=== PATIENT | female | born 1940 | race Caucasian/White ===

== ENCOUNTER 2016-08-08 08:21 | Emergency (ER) | payer MEDICARE, BC ==
[2016-07-10 10:15] VITALS: BMI 28.9
[~2016-08-08 08:21] MED LIST: ATIVAN1 MG PO; AXID150 MG PO; BAYER CHEWABLE81 MG PO; CALTRATE 600 M600 M1 PO; CLARITIN 10 MG10 MG PO; COLACE100 MG PO; HYTRIN1 MG PO; K-TAB10 MEQ PO; LIPITOR80 MG PO; NEURONTIN 300300 MG PO; NORCO 7.5/325 T1 TA1 PO; PLAVIX75 MG PO; PRESERVISION AR1 CAP PO; PRINIVIL10 MG PO; TOPROL XL25 MG PO; ZYLOPRIM100 MG PO
== END 2016-08-08 09:13 | disposition home or self-care (01) ==
LOC: D.ER 08:21
DX: I10 Essential (primary) hypertension (principal)

== ENCOUNTER → 2017-01-03 08:19 | Outpatient (CLI) | payer MEDICARE, BC ==
[~2017-01-03] VITALS: Ht 160 cm; Wt 72.7 kg
--- NOTE | ~2017-01-03 | HEMODYNAMI ---
PATIENT:DELTA MOON MEDICAL RECORD: [id number] : 38 LOCATION:[facility] ADMISSION DATE: 01/03/17 Generatedon:01/03/201711:02 Patient name: DELTA MOON Patient #: [id number] : 1940 Date of study: 01/03/2017 Page: Of Hemodynamic Procedure Report Patient Data Patient Demographics Procedure consent was obtained First Name: DELTA Gender: Female Last Name: SARAI : 1940 Middle Initial: P Age: 76 year(s) Patient #: [id number] Race: SSN: [id number] Additional ID: [id number] Contact details [address]: [address] [place] [address] State: [place] City: [place] Zip code: [address] Past Medical History History of disease Date Diagnosis Comments CAD Allergies Allergen Reaction Date Comments Reported Other allergy 08/03/2015 COMPAZINE Other allergy 07/10/2016 Compazine Other allergy 01/03/2017 Compazine Admission Admission Data Admission Date: 01/03/2017 Admission Time: 8:19 Procedure Procedure Types Cath Procedure Diagnostic Procedure LHC LHC w/Coronaries w/Grafts PCI Procedure SVG-BMS/LAURA Initial Miscellaneous Procedures Moderate Sedation up to 30 minutes Procedure Description Procedure Date Procedure Date: 01/03/2017 Procedure Start Time: 10:45 Procedure End Time: 11:02 Procedure Staff Name Function Yaron Oliva MD Performing Physician Juan Ko RT Scrub Bebeto Friedman RN Nurse Vanessa Plunkett RT Monitor Procedure Data Cath Procedure Fluoroscopy Diagnostic fluoroscopy Total fluoroscopy Time: 2.8 time: 2.8 min min Diagnostic fluoroscopy Total fluoroscopy dose: 306 dose: 306 mGy mGy Contrast Material Contrast Material Type Amount (ml) Isovue 300 85 Entry Location Entry Primary Successful Side Size Upsize Upsize Entry Closure Succes sful Closure Location (Fr) 1 (Fr) 2 (Fr) Remarks Device Remarks Femoral Right 5 Fr 6 Fr Exoseal artery Short Estimated blood loss: 10 ml Diagnostic catheters Device Type Used For End Catheter Placement Cordis 5Fr Pigtail LV Angiography Catheter (MP) Cordis 5Fr JL 4.0 Left Coronary Catheter (MP) Angiography Cordis 5Fr 3DRC Catheter Internal mammary (MP) arteriography Cordis 5Fr 3DRC Catheter Right Coronary (MP) Angiography Diagnostic Infinity 5Fr SVG Angiography AR 2 MOD catheter Diagnostic Infinity 5Fr SVG Angiography AR 2 MOD catheter Procedure Complications No complications Procedure Medications Medication Administration Route Dosage Oxygen NC 2 l/min Heparin Flush Bag added to field 2 bags (1000units/500ml NS) 0.9% NaCl I.V. 100 ml/hr Fentanyl I.V. 50 mcg Versed I.V. 1 mg Fentanyl I.V. 50 mcg Versed I.V. 1 mg Heparin Bolus I.V. 4000 units Hemodynamics Rest Heart Rate: 62 (bpm) Snapshots Pre Cath Intra NCS Post Cath Vital Signs Time Heart Resp SPO2 etCO2 [id number] NIBP (mmHg) Rhythm Pain Sedation Rate (ipm) (%) (mmHg) (mmHg) Status Level (bpm) 10:17:32 61 16 97 0 0 133/66(102) NSR 0 (11) 10(A) , No pain 10:21:44 61 18 100 0 0 123/68(95) NSR 0 (11) 10(A) , No pain 10:25:58 62 18 100 0 0 123/62(94) NSR 0 (11) 10(A) , No pain 10:30:14 61 17 100 0 0 115/55(85) NSR 0 (11) 9(A) , No pain 10:34:28 62 18 94 0 0 105/52(82) NSR 0 (11) 9(A) , No pain 10:38:38 62 18 97 0 0 97/53(71) NSR 0 (11) 9(A) , No pain 10:42:42 61 16 98 0 0 109/61(80) NSR 0 (11) 9(A) , No pain 10:46:52 61 19 99 0 0 106/59(84) NSR 0 (11) 9(A) , No pain 10:50:59 62 18 95 0 0 105/62(77) NSR 0 (11) 9(A) , No pain 10:55:07 63 17 94 0 0 100/57(73) NSR 0 (11) 9(A) , No pain 10:59:13 66 18 94 0 0 92/59(69) NSR 0 (11) 9(A) , No pain Medications Time Medication Route Dose Verified Delivered Reason Notes Effectiveness by by 10:16:16 Oxygen NC 2 Bebeto Bebeto Per physician l/min Elder Friedman RN RN 10:16:28 Heparin Flush added 2 Bebeto Bebeto used for Bag to bags Elder Friedman RN procedure (1000units/500ml field RN NS) 10:16:39 0.9% NaCl I.V. 100 Bebeto Bebeto Per physician ml/hr Elder Friedman RN RN 10:29:33 Fentanyl I.V. 50 Bebeto Bebeto for sedation mcg Elder Friedman RN RN 10:29:40 Versed I.V. 1 mg Bebeto Bebeto for sedation Elder Friedman RN RN 10:36:02 Fentanyl I.V. 50 Bebeto Bebeto for sedation mcg Elder Friedman RN RN 10:36:06 Versed I.V. 1 mg Bebeto Bebeto for sedation Elder Friedman RN RN 10:53:05 Heparin Bolus I.V. 4000 Bebeto Bebeto for units Elder Friedman RN anticoagulation roadmaster Log Time Note 9:55:14 Bebeto Friedman RN sent for patient. Start room use. 10:05:15 Time tracking: Regular hours 10:05:20 Plan of Care:Hemodynamics will remain stable., Cardiac rhythm will remain stable., Comfort level will be maintained., Respiratory function will remain adequate., Patient/ family verbilizes understanding of procedure., Procedure tolerated without complication., Recovers from procedure without complications.. 10:08:45 Patient received from Pre/Post Procedure Room to CCL 1 Alert and oriented. Tansferred to table in Supine position. 10:08:46 Warm blankets applied, and yrn hugger turned on for patient comfort. 10:08:46 Correct patient and procedure confirmed by team. 10:08:47 Signed procedure consent form obtained from patient. 10:08:48 ECG and BP/O2 sat monitors applied to patient. 10:08:49 Full Disclosure recording started 10:16:16 Oxygen 2 l/min NC was administered by Bebeto Friedman RN; Per physician; 10:16:25 Vital chart was started 10:16:28 Heparin Flush Bag (1000units/500ml NS) 2 bags added to field was administered by Bebeto Friedman RN; used for procedure; 10:16:29 Rhythm: sinus rhythm 10:16:39 0.9% NaCl 100 ml/hr I.V. was administered by Bebeto Friedman RN; Per physician; 10:17:07 H&P Date Dictated: 12/27/2016 Within 30 days and on chart., H&P Addendum completed by physician on day of procedure. (MUST COMPLETE FOR ALL OUTPATIENTS). 10:17:08 Pre-procedure instructions explained to patient. 10:17:09 Pre-op teaching completed and patient verbalized understanding. 10:17:10 Family in waiting room. 10:17:11 Patient NPO since Midnight. 10:17:30 Patient allergic to Other allergyCompazine 10:17:34 Is the patient allergic to Iodine/contrast media? No. 10:17:36 Is patient on blood thinner?Yes 10:17:38 ACC The patient was administered the following blood thiners within the last 24 hours: ACCPlavix 10:17:41 Patient diabetic? No. 10:17:44 Previous problem with sedation/anesthesia? No ? 10:17:48 Snore? Yes 10:17:49 Sleep apnea? Yes 10:17:50 Deviated septum? No 10:17:51 Opens mouth fully? Yes 10:17:52 Sticks out tongue? Yes 10:17:54 Airway obstruction? No ? 10:17:56 Dentures? No ? 10:17:58 Pre procedure: right dorsailis pedis pulse 2+ Normal; easily identifiable; not easily obliterated 10:18:00 Patient pain scale 0/10 ?. 10:18:03 IV patent on arrival in left hand with 0.9% NaCl at O. 10:18:07 Lab results completed and on chart. 10:18:13 Right groin area was prepped with chlora-prep and draped in sterile fashion 10:18:15 Alarms reviewed by R. N. 10:18:16 Sharps counted by scrub and verified by R.N. 10:18:22 Use device set Femoral Dx 10:18:22 Acist Syringe opened to sterile field. 10:18:23 Bag Decanter opened to sterile field. 10:18:23 Medline Cath Pack opened to sterile field. 10:18:24 Terumo 5Fr Avoca Sheath opened to sterile field. 10:18:24 [facility] Anthony 260cm J .035 wire opened to sterile field. 10:18:25 Acist Hand Control opened to sterile field. 10:18:26 Acist Manifold opened to sterile field. 10:18:26 Diagnostic Infinity 5Fr Multipack catheter opened to sterile field. 10:18:27 Tegaderm 4 x 4 opened to sterile field. 10:19:03 Baseline sample Acquired. 10:28:57 Final Timeout: patient, procedure, and site verified with staff and physician. All members of the team are in agreement. 10:29:00 Right groin site verified by team. 10:29:04 Physical assessment completed. ASA score P 2 - A patient with mild systemic disease as per Yaron Oliva MD. 10:29:08 Sedation plan: IV Moderate Sedation Versed, Fentanyl 10:29:15 Zero performed for pressure channel P1 10:29:33 Fentanyl 50 mcg I.V. was administered by Bebeto Friedman RN; for sedation; 10:29:40 Versed 1 mg I.V. was administered by Bebeto Friedman RN; for sedation; 10:36:02 Fentanyl 50 mcg I.V. was administered by Bebeto Friedman RN; for sedation; 10:36:06 Versed 1 mg I.V. was administered by Bebeto Friedman RN; for sedation; 10:45:10 Procedure started. 10:45:13 Local anesthetic to right femoral artery with Lidocaine 2% by Yaron Oliva MD.INITIAL ACCESS ONLY 10:45:21 A 5 Fr sheath was inserted into the Right Femoral artery 10:45:50 A Cordis 5Fr Pigtail Catheter (MP) was advanced over the wire and used for LV Angiography. 10:46:10 LV gram done using JONES 10:46:16 EF : 50 % 10:46:20 Injector settings: Ml/sec: 10, Volume: 20, 10:46:21 Catheter removed. 10:46:27 A Cordis 5Fr JL 4.0 Catheter (MP) was advanced over the wire and used for Left Coronary Angiography. 10:47:20 Catheter removed. 10:47:45 A Cordis 5Fr 3DRC Catheter (MP) was advanced over the wire and used for Internal mammary arteriography.to LAD atretic 10:48:55 A Cordis 5Fr 3DRC Catheter (MP) was advanced over the wire and used for Right Coronary Angiography. 10:48:57 Catheter removed. 10:49:20 A Diagnostic Infinity 5Fr AR 2 MOD catheter was advanced over the wire and used for SVG Angiography.to CIRC 10:50:25 A Diagnostic Infinity 5Fr AR 2 MOD catheter was advanced over the wire and used for SVG Angiography.to RCA 10:51:32 Key Ringtronic Launcher 6Fr AR 1.0 SH guide catheter opened to sterile field. 10:51:32 Lucas Whisper J 300cm 0.014 guide wire opened to sterile field. 10:51:33 Soompi BasixCompak Inflation Kit opened to sterile field. 10:51:33 Terumo 6Fr Avoca Sheath opened to sterile field. 10:53:01 Sheath upsized to a 6 Fr Short. 10:53:05 Heparin Bolus 4000 units I.V. was administered by Bebeto Friedman RN; for anticoagulation; 10:53:10 6 Fr AR 1.0 SH guide catheter was inserted over the wire 10:53:49 Whisper wire advanced. 10:54:11 Inflation Number: 1 A Biofreedom 3.0 x 11 stent (No Cost Implant) was prepped and advanced across the Aorta Left -> 1st Ob Yulia. The stent was deployed at 11 MADAI for 0:10 (min:sec). 10:54:26 Stent catheter was removed intact over wire. 10:54:27 Wire removed. 10:54:27 Guide catheter removed. 10:54:36 Cordis 6Fr Exoseal opened to sterile field. 10:54:45 Sheath removed intact; hemostasis achieved with Exoseal to the Right Femoral artery. 10:54:47 Procedure ended.(Physican Out) 10:55:29 Fluoroscopy time 02.80 minutes. 10:55:33 Flurop Dose total: 306 10:55:33 Fluoroscopy dose: 306 mGy 10:55:42 Contrast amount:Isovue 300 85ml. 10:55:43 Sharps counted by scrub and verified by R.N. 10:55:45 Insertion/operative site no bleeding no hematoma. 10:55:47 Post-op/insertion site Right Femoral artery dressed using a 4 x 4 and Tegaderm. 10:55:52 Post right femoral artery:stable, clean and dry 10:56:07 Post Procedure Pulses reassessed and unchanged 10:59:48 Post-procedure physical assessment completed. ASA score P 2 - A patient with mild systemic disease as per Yaron Oliva MD. 10:59:50 Post procedure rhythm: unchanged. 10:59:52 Estimated blood loss: 10 ml 10:59:54 Post procedure instruction explained to patient.Patient verbalizes understanding. 10:59:55 Patient needs reinforcement of post procedure teaching. 11:00:19 Procedure type changed to Cath procedure, Diagnostic procedure, LHC, LHC w/Coronaries w/Grafts, PCI procedure, SVG-BMS/LAURA Initial, Miscellaneous Procedures, Moderate Sedation up to 30 minutes 11:02:13 Procedure and supply charges have been captured, reviewed, submitted and are correct. 11:02:18 Procedure Complication : No complications 11:02:21 Vital chart was stopped 11:02:21 See physician's report for complete and final results. 11:02:24 Report given to Pre/Post Procedure Room. 11:02:27 Patient transfered to Pre/Post Procedure Room with Stretcher. 11:02:30 Procedure ended. 11:02:30 Full Disclosure recording stopped 11:02:37 End room use (Document Last) Intervention Summary Intervention Notes Time ActionType Lesion and Equipment Action# Pressure Duration Attributes Used 10:54:11 Place stent Aorta Left Biofreedom 1 11 00:10 -> 1st Ob 3.0 x 11 Yulia stent (No Cost Implant) Device Usage Item Name Manufacture Quantity Catalog Hospital Part Current Minimal Lot# / Number Charge Number Stock Stock Serial# Code Acist Acist 1 23711 351484 563924 753792 20 Syringe Medical Systems Inc Bag Microtek 1 2002S 107539 98819 517251 5 Dec[employer]deego [employer] Medline Cardinal 1 [id number] 514258 08376 034446 5 Cath Pack Health Terumo 5Fr Terumo 1 [id number] 802892 711903 201434 [address] [facility] 1 360790 058138 480677 857729 30 260cm J .035 wire Acist Hand Acist 1 66423 543528 348990 384277 5 Control Medical Systems Inc Acist Acist 1 15441 045206 324081 004778 5 castaclip Systems Inc Diagnostic Cardinal 1 [id number] 676756 06284 138170 30 Infinity Health 5Fr Multipack catheter Tegaderm 4 3M 1 1626W 850077 342885 709379 5 x 4 Cordis 5Fr Cardinal 1 827697 5 Pigtail Health Catheter (MP) Cordis 5Fr Cardinal 1 835779 5 JL 4.0 Health Catheter (MP) Cordis 5Fr Cardinal 1 008874 5 3DRC Health Catheter (MP) Diagnostic Cardinal 1 [id number] 298237 863722 616511 20 Infinity Health 5Fr AR 2 MOD catheter Medtronic Medtronic 1 [id number] 353854 10048 889424 1 Launcher 6Fr AR 1.0 SH guide catheter Lucas Lucas 1 [id number] 724617 622173 042004 5 [facility] V[facility] 300cm 0.014 guide wire Merit Merit 1 [id number] 071068 144142 855866 15 Effcon MXR Medical Inflation Kit Terumo 6Fr Terumo 1 [id number] 239129 305536 956901 40 Avoca Sheath Biofreedom Biosensors 1 [id number] 978830 921525 5 [id number] 3.0 x 11 Europe SA stent (No Cost Implant) Cordis 6Fr Cardinal 1 EX600 714680 063553 732134 10 [place] Signature Audit [place] Stage Time Signature Unsigned Intra-Procedure 01/03/2017 Vanessa 11:02:47 AM Counts RT(R) Signatures Monitor : Vanessa Signature : Counts RT Date : Time : [facility] [address] [place] [address]
[~2017-01-03 08:19] MED LIST changes: +EX-LAX MAXIMUM25 MG PO; +PENICILLIN V P500 MG PO
[2017-01-03 09:08] VITALS: BP 163/64; Ht 160 cm; Wt 72.7 kg
[2017-01-03 09:46] LABS: BASOPHILS 0.9 % (0-2); EOSINOPHILS 9.9 % (0-7); HEMATOCRIT 37.8 % (36.0-48.0); HEMOGLOBIN 12.1 g/dL (12-16); LYMPHOCYTES 28.1 % (15-50); MCH 31.8 pg (26.0-34.0); MCV 99.5 fL (80.0-100.0); MEAN PLATELET VOLUME 10.4 fL (7.4-10.4); MONOCYTES 10.2 % (2-11); NEUTROPHILS 50.9 % (40-80); PLATELET COUNT 152 10x3/uL (130-400); RDW 14.9 % (11.5-14.5); WBC 5.3 10x3/uL (4.8-10.8)
[2017-01-03 09:56] LABS: ANION GAP 12.9 mmol/L (8-16); CALCIUM 8.8 mg/dL (8.5-10.1); CARBON DIOXIDE 24.2 mmol/L (21.0-32.0); CREATININE - SERUM 1.3 mg/dL (0.6-1.3); POTASSIUM - SERUM 4.1 mmol/L (3.5-5.1)
[2017-01-03 10:13] LABS: CKMB 13.3 U/L (0.0-3.6); CREATINE KINASE 80 UL (21-215)
[2017-01-03 10:17] LABS: TROPONIN-I < 0.017 ng/mL (0.000-0.060)
--- NOTE | 2017-01-03 11:30 | NUR ---
1130 VSS WITH CHEST PAIN DENIED. 6 FR EXOSEAL R/GROIN CDI NO BLEEDING NO HEMATOMA NOTED. INSTRUCTED PATIENT TO KEEP HEAD FLAT ON PILLOW WITH RLE STRAIGHT 1200 RESTING QUIETLY WITH NO DISTRESS R/GROIN CDI NO BLEEDING NO HEMATOMA NOTED. WILL CONTINUE TO MONITOR
--- NOTE | 2017-01-03 12:30 | NUR ---
R/GROIN CDI NO BLEEDING NO HEMATOMA NOTED. PATIENT DENIED PAIN OR NEEDS AT THIS TIME WILL MONITOR
--- NOTE | 2017-01-03 13:00 | NUR ---
QUIETLY RESTING IN BED WITH EYES CLOSED. VSS. RIGHT GROIN 6F EXOSEAL CDI, NO BLEEDING OR HEMATOMA NOTED. NO C/O CHEST PAIN AT THIS TIME. WILL CONTINUE TO MONITOR.
--- NOTE | 2017-01-03 14:06 | NUR ---
POST PROCEDURE EKG COMPLETE AND TO CHART HR 59 BP 116/46
--- NOTE | 2017-01-03 14:53 | NUR ---
PIV REMOVED FROM L/ARM WITH DRESSING APPLIED. PATIENT UP TO BATHROOM WITH ASSIST R/GROIN CDI NO BLEEDING NOTED CHEST PAIN DENIED
--- NOTE | 2017-01-03 15:07 | NUR ---
VERBAL AND WRITTEN DISCHARGE GONE OVER WITH PATIENT. R/GROIN REMAINS STABLE NO BLEEDING NOTED. CHEST PAIN IS DENIED. TRANSPORTED VIA TO PARKING FOR DAUGHTER TO DRIVE HOME
--- NOTE | 2017-01-04 13:29 | OP ---
PATIENT NAME: DELTA MOON MEDICAL RECORD: [id number] :38 LOCATION:[facility] ADMISSION DATE: SURGEON: FABIENNE SANCHEZ MD DATE OF OPERATION: 01/03/2017 PROCEDURES: 1. PTCA stent vein graft to the circumflex. 2. Left heart catheterization. 3. Selective coronary angiography. 4. Vein graft angiography. 5. AVALOS angiography. INDICATION: Angina and coronary artery disease. PROCEDURE: After informed consent was obtained and after detailed explanation of risks, benefits as well as alternative therapies, the patient elected to proceed with angiogram and angioplasty. The right femoral area was prepped and draped in normal sterile fashion. The right femoral artery was cannulated via modified Seldinger technique with placement of 6-Belarusian sheath. All catheters exchanged through this sheath. FINDINGS: The left ventriculogram was performed in standard 30-degree JONES view reveals preserved cardiac wall motion, ejection fraction 50%. SELECTIVE CORONARY ANGIOGRAPHY: 1. Left main is with no significant angiographic disease. 2. The left circumflex is patent; however, the first obtuse marginal was totally occluded. 3. Vein graft to the first obtuse marginal was patent, previously placed stents are widely patent. However, proximal to the previously placed stents, there is an 80% stenosis that is new. 4. Left anterior descending is totally occluded in mid vessel. 5. AVALOS to the LAD is closed. 6. Right coronary has a total occlusion in the proximal vessel. 7. Vein graft to the right coronary is widely patent with no significant disease. The distal right coronary is small and diffusely diseased. PTCA STENT OF THE VEIN GRAFT TO THE CIRCUMFLEX: The stent used was a 3.0 x 11 mm BioFreedom stent. This lesion was 8 mm in length in a 3.0 vessel. YAZMIN 3 flow before and after the intervention, 0% residual stenosis after the intervention. OVERALL IMPRESSION: Successful percutaneous transluminal coronary angioplasty stent of the vein graft to the circumflex going from 80% initial stenosis to 0% residual stenosis. TRANSINT:[id number] Voice Confirmation ID: [id number] DOCUMENT ID: [id number] OPERATIVE REPORT [id number] DELTA MOON FABIENNE BAUMANN MD at 1329 CC: [id number] DICTATION DATE: 01/03/17 1114 PROCESS IMPROVEMENT SPECIALIST: 01/03/17 1504 DEP CLI 01/03/17 [facility] [address] [place] [address]
== END | disposition home or self-care (01) ==
LOC: D.CATH 08:19
PROVIDERS: Internal Medicine Interventional Cardiology
DX: I25.719 Atherosclerosis of autologous vein coronary artery bypass graft(s) with unspecified angina pectoris (principal); I25.119 Atherosclerotic heart disease of native coronary artery with unspecified angina pectoris; Z00.6 Encounter for examination for normal comparison and control in clinical research program

== ENCOUNTER 2017-09-17 07:27 | Outpatient (CLI) | payer MEDICARE, BC ==
[~2017-09-17] VITALS: Ht 160 cm; Wt 75.0 kg
--- NOTE | ~2017-09-17 | HEMODYNAMI ---
PATIENT:DELTA MOON MEDICAL RECORD: [id number] : 38 LOCATION:[facility] ADMISSION DATE: 09/17/17 Generatedon:09/17/201710:09 Patient name: DELTA MOON Patient #: [id number] : 1940 Date of study: 09/17/2017 Page: Of Hemodynamic Procedure Report Patient Data Patient Demographics Procedure consent was obtained First Name: DELTA Gender: Female Last Name: SARAI : 1940 Middle Initial: P Age: 77 year(s) Patient #: [id number] Race: SSN: [id number] Additional ID: [id number] Contact details [address]: [address] [place] [address] State: [place] City: [place] Zip code: [address] Past Medical History History of disease Date Diagnosis Comments CAD Allergies Allergen Reaction Date Comments Reported Other allergy 08/03/2015 COMPAZINE Other allergy 07/10/2016 Compazine Other allergy 01/03/2017 Compazine Other allergy 09/17/2017 Prochlorperazine Admission Admission Data Admission Date: 09/17/2017 Admission Time: 7:27 Admit Source: Other Lab Results Lab Result Date: 09/17/2017 Lab Result Time: 7:55 Biochemistry Name Units Result Min Max BUN mg/dl 26 --(----)-* 7 18 Creatinine mg/dl 1.5 --(----)-* 0.6 1.3 CBC Name Units Result Min Max Hematocrit % 44 --(*---)-- 42 54 Hemoglobin g/dl 14.4 --(*---)-- 13.5 17.5 Procedure Procedure Types Cath Procedure Diagnostic Procedure LHC LHC w/Coronaries w/Grafts Procedure Description Procedure Date Procedure Date: 09/17/2017 Procedure Start Time: 9:54 Procedure End Time: 10:08 Procedure Staff Name Function Yaron Oliva MD Performing Physician Bebeto Friedman RN Nurse Truong Sotelo RT Monitor Juan Ko RT Scrub Procedure Data Cath Procedure Fluoroscopy Diagnostic fluoroscopy Total fluoroscopy Time: 1.5 time: 1.5 min min Diagnostic fluoroscopy Total fluoroscopy dose: dose: 172.41 mGy 172.41 mGy Contrast Material Contrast Material Type Amount (ml) Isovue 300 72 Entry Location Entry Primary Successful Side Size Upsize Upsize Entry Closure Succes sful Closure Location (Fr) 1 (Fr) 2 (Fr) Remarks Device Remarks Femoral Right 5 Fr Exoseal artery Estimated blood loss: 10 ml Diagnostic catheters Device Type Used For End Catheter Placement MULTIPACK Pigtail 5 Fr Procedure catheter MULTIPACK JL 4.0 5Fr Procedure catheter DIAGNOSTIC AR 2 MOD 5 Fr Procedure catheter ([id number]) Procedure Medications Medication Administration Route Dosage Oxygen NC 2 l/min Heparin Flush Bag added to field 2 bags (1000units/500ml NS) 0.9% NaCl I.V. 100 ml/hr Fentanyl I.V. 50 mcg Versed I.V. 1 mg Fentanyl I.V. 50 mcg Versed I.V. 1 mg Hemodynamics Rest HGB: 14.4 (g/dl) Heart Rate: 59 (bpm) Pressure Samples Time Site Value (mmHg) Purpose Heart Use Rate(bpm) 9:56 LV 127/17,23 Snapshot 59 Snapshots Pre Cath Intra NCS Post Cath Vital Signs Time Heart Resp SPO2 etCO2 NIBP (mmHg) Rhythm Pain Sedation Rate (ipm) (%) (mmHg) Status Level (bpm) 9:42:25 58 16 98 0 155/79(128) NSR 0 (11) 10(A) , No pain 9:46:55 59 16 100 15.2 143/83(115) NSR 0 (11) 10(A) , No pain 9:51:23 57 16 100 25.9 147/77(125) NSR 0 (11) 10(A) , No pain 9:55:52 58 17 100 153/78(122) NSR 0 (11) 10(A) , No pain 10:00:20 59 15 96 10.6 120/65(97) NSR 0 (11) 9(A) , No pain 10:04:36 62 16 95 0 103/66(98) NSR 0 (11) 9(A) , No pain Medications Time Medication Route Dose Verified Delivered Reason Notes Effect iveness by by 9:42:57 Oxygen NC 2 Yaron Bebeto Per l/min Hazel Friedman RN physician 9:43:06 Heparin Flush added 2 Yaron Hannahy used for Bag to bags Hazel Friedman bullet swaging machine adjuster (1000units/500ml field NS) 9:43:14 0.9% NaCl I.V. 100 Yaron Hannahy Per ml/hr Hazel Friedman RN physician 9:55:12 Fentanyl I.V. 50 Yaron Hannahy for mcg Hazel Friedman RN sedation 9:55:20 Versed I.V. 1 mg Yaron Hannahy for Hazel Friedman RN sedation 9:58:01 Fentanyl I.V. 50 Yaron Hannahy for mcg Hazel Friedman RN sedation 9:58:06 Versed I.V. 1 mg Yaron Hannahy for Hazel Friedman RN sedation Procedure Log Time Note 9:20:08 Truong Sotelo RT(R) (CV) sent for patient. Start room use. 9:29:33 Informed consent obtained and on chart 9:29:37 Admit Source: Other 9:30:07 Diagnostic Cath status Elective 9:30:09 Time tracking: Regular hours 9:30:12 Plan of Care:Hemodynamics will remain stable., Cardiac rhythm will remain stable., Comfort level will be maintained., Respiratory function will remain adequate., Patient/ family verbilizes understanding of procedure., Procedure tolerated without complication., Recovers from procedure without complications.. 9:30:25 H&P Date Dictated: 09/03/2017 Within 30 days and on chart., H&P Addendum completed by physician on day of procedure. (MUST COMPLETE FOR ALL OUTPATIENTS). 9:31:31 Lab Result : Hemoglobin 14.4 g/dl 9::31 Lab Result : Hematocrit 44 % 9:31:31 Lab Result : BUN 26 mg/dl 9:31:31 Lab Result : Creatinine 1.5 mg/dl 9:34:27 Patient received from Pre/Post Procedure Room to CCL 3 Alert and oriented. Tansferred to table in Supine position. 9:34:28 Warm blankets applied, and yrn hugger turned on for patient comfort. 9:34:29 Correct patient and procedure confirmed by team. 9:34:30 ECG and BP/O2 sat monitors applied to patient. 9:34:31 Pre-procedure instructions explained to patient. 9:34:32 Pre-op teaching completed and patient verbalized understanding. 9:34:33 Family in waiting room. 9:34:34 Patient NPO since Midnight. 9:34:47 Patient allergic to Other allergyProchlorperazine 9:41:04 Vital chart was started 9:41:05 Baseline sample Acquired. 9:42:57 Oxygen 2 l/min NC was administered by Bebeto Friedman RN; Per physician; 9:43:06 Heparin Flush Bag (1000units/500ml NS) 2 bags added to field was administered by Bebeto Friedman RN; used for procedure; 9:43:14 0.9% NaCl 100 ml/hr I.V. was administered by Bebeto Friedman RN; Per physician; 9:43:45 Baseline sample Acquired. 9:43:57 Rhythm: sinus rhythm 9:45:49 Is the patient allergic to Iodine/contrast media? No. 9:46:13 Is patient on blood thinner?Yes 9:46:16 ACC The patient was administered the following blood thiners within the last 24 hours: ACCPlavix 9:46:21 Patient diabetic? No. 9:46:24 Patient not . Patient is over age 55. 9:46:25 ----Pre-sedation anethsthesia assessment.---- 9:46:27 Previous problem with sedation/anesthesia? No ? 9:46:29 Snore? Yes 9:46:30 Sleep apnea? Yes 9:46:32 Deviated septum? No 9:46:33 Opens mouth fully? Yes 9:46:33 Sticks out tongue? Yes 9:46:36 Airway obstruction? No ? 9:46:39 Dentures? No ? 9:49:01 Pre procedure: right dorsailis pedis pulse 2+ Normal; easily identifiable; not easily obliterated 9:49:14 Patient pain scale 0/10 0. 9:49:29 IV patent on arrival in left wrist with 0.9% NaCl at O. 9:49:33 Lab results completed and on chart. 9:49:37 Right groin area was prepped with chlora-prep and draped in sterile fashion 9:49:38 Alarms reviewed by R. N. 9:49:39 Sharps counted by scrub and verified by R.N. 9:49:43 Use device set Femoral Dx 9:49:45 ACIST Syringe (88613) opened to sterile field. 9:49:45 Bag Decanter (2002S) opened to sterile field. 9:49:46 Medline Cath Pack ([id number]) opened to sterile field. 9:49:47 SHEATH 5FR Estelline (CLG325) opened to sterile field. 9:49:48 DIAGNOSTIC WIRE .035 260cm J wire (668481) opened to sterile field. 9:49:49 ACIST Hand Control (70307) opened to sterile field. 9:49:50 ACIST Manifold (12441) opened to sterile field. 9:49:52 DIAGNOSTIC Multipack 5Fr catheter set ([id number]) opened to sterile field. 9:49:57 Tegaderm 4 x 4 (1626W) opened to sterile field. 9:49:59 PERCUTANEOUS ENTRY 19GA needle opened to sterile field. 9:52:10 Physician arrived 9:52:11 --------ALL STOP TIME OUT------ 9:52:11 Final Timeout: patient, procedure, and site verified with staff and physician. All members of the team are in agreement. 9:52:13 Right groin site verified by team. 9:52:16 Physical assessment completed. ASA score P 2 - A patient with mild systemic disease as per Yaron Oliva MD. 9:52:20 Sedation plan: IV Moderate Sedation Medication:Versed, Fentanyl 9:53:26 Procedure started. 9:53:26 Full Disclosure recording started 9:54:37 Local anesthetic to right femoral artery with Lidocaine 2% by Yaron Oliva MD.INITIAL ACCESS ONLY 9:55:12 Fentanyl 50 mcg I.V. was administered by Bebeto Friedman RN; for sedation; 9:55:20 Versed 1 mg I.V. was administered by Bebeto Friedman RN; for sedation; 9:56:04 A 5 Fr sheath was inserted into the Right Femoral artery 9:56:11 A MULTIPACK Pigtail 5 Fr catheter was advanced over the wire and used for Procedure. 9:56:35 LV hemodynamics recorded. 9:56:37 LV gram done using JONES 9:56:43 EF : 50 % 9:56:46 Catheter removed. 9:57:42 A MULTIPACK JL 4.0 5Fr catheter was advanced over the wire and used for Procedure. 9:57:48 LCA angiography performed. 9:57:58 Catheter removed. 9:58:01 Fentanyl 50 mcg I.V. was administered by Bebeto Friedman RN; for sedation; 9:58:05 A DIAGNOSTIC AR 2 MOD 5 Fr catheter ([id number]) was advanced over the wire and used for Procedure. 9:58:06 Versed 1 mg I.V. was administered by Bebeto Friedman RN; for sedation; 9:58:48 SVG to RCA angiography performed. 9:59:36 SVG to OM angiography performed. 10:00:57 EXOSEAL 5Fr (EX500) opened to sterile field. 10:01:03 Catheter removed. 10:01:33 Sheath removed intact; hemostasis achieved with Exoseal to the Right Femoral artery. 10:02:03 Procedure ended.(Physican Out) 10:02:15 Fluoroscopy time 01.50 minutes. 10:02:22 Flurop Dose total: 172.41 10:02:22 Fluoroscopy dose: 172.41 mGy 10:02:56 Contrast amount:Isovue 300 72ml. 10:02:57 Sharps counted by scrub and verified by R.N. 10:05:50 Insertion/operative site no bleeding no hematoma. 10:05:54 Post-op/insertion site Right Femoral artery dressed using a 4 x 4 and Tegaderm. 10:05:58 Post right femoral artery:stable 10:06:00 Post Procedure Pulses reassessed and unchanged 10:06:04 Post-procedure physical assessment completed. ASA score P 2 - A patient with mild systemic disease as per Yaron Oliva MD. 10:06:09 Post procedure rhythm: sinus rhythm 10:06:13 Estimated blood loss: 10 ml 10:06:16 Post procedure instruction explained to patient.Patient verbalizes understanding. 10:06:17 Patient needs reinforcement of post procedure teaching. 10:06:20 Procedure and supply charges have been captured, reviewed, submitted and are correct. 10:08:38 Vital chart was stopped 10:08:39 See physician's report for complete and final results. 10:08:41 Report given to Pre/Post Procedure Room. 10:08:45 Patient transfered to Pre/Post Procedure Room with Stretcher. 10:08:50 Procedure ended. 10:08:50 Full Disclosure recording stopped 10:09:21 End room use (Document Last) Device Usage Item Name Manufacture Quantity Catalog Hospital Part Current Minimal Lot# / Number Charge Number Stock Stock Serial# Code ACIST Acist 1 88913 [id number] 315359 710825 20 Syringe Medical (83353) Systems Inc Bag Decanter Microtek 1 2001S 668670 38554 264070 5 (2001S) Medical Inc. Medline Cath Cardinal 1 [id number] 330182 43583 249536 5 Pack Health ([id number]) SHEATH 5FR Terumo 1 QHD395 052382 357473 117053 40 Estelline (PEY790) DIAGNOSTIC [facility] 1 064824 838781 623227 283887 30 WIRE .035 260cm J wire (220643) ACIST Hand Acist 1 16397 866555 824398 753714 5 Control Medical (54628) Systems Inc ACIST Acist 1 05689 734738 556359 080875 5 Manifold Medical (11613) Systems Inc DIAGNOSTIC Cardinal 1 WE5125 620367 85917 689964 30 Multipack Health 5Fr catheter set ([id number]) Tegaderm 4 x 3M 1 1626W 603309 184314 805734 5 4 (1626W) PERCUTANEOUS Cook Medical 1 S45330 710044 642035 5 ENTRY 19GA needle MULTIPACK Cardinal 1 050587 5 Pigtail 5 Fr Health catheter MULTIPACK JL Cardinal 1 930772 5 4.0 5Fr Health catheter DIAGNOSTIC Cardinal 1 [id number] 232970 859963 283298 20 AR 2 MOD 5 Health Fr catheter ([id number]) EXOSEAL 5Fr Cardinal 1 EX500 263851 153050 320012 10 (EX500) Health Signature Audit Mosca Stage Time Signature Unsigned Intra-Procedure 09/17/2017 Truong Sotelo 10:09:42 AM RT(R) (CV) Signatures Monitor : Truong Sotelo RT Signature : Date : Time : [place] [address]
--- NOTE | ~2017-09-17 | OP ---
PATIENT NAME: DELTA MOON MEDICAL RECORD: [id number] :38 LOCATION:[facility] ADMISSION DATE: SURGEON: FABIENNE SANCHEZ MD DATE OF OPERATION: 09/17/2017 PROCEDURES: 1. Left heart catheterization. 2. Selective coronary angiography. 3. Vein graft angiography. 4. Left ventriculogram. INDICATION: Angina and coronary artery disease. PROCEDURE IN DETAIL: After informed consent was obtained and after detailed explanation of risks, benefits as well as alternative therapies, the patient elected to proceed with angiogram and heart catheterization. The right femoral area was prepped and draped in normal sterile fashion. The right femoral artery was cannulated via modified Seldinger technique with placement of 6-Kyrgyz sheath. All catheters exchanged through this sheath. FINDINGS: The left ventriculogram was performed in standard 30-degree JONES view, reveals preserved cardiac wall motion, ejection fraction 55% to 60%. SELECTIVE CORONARY ANGIOGRAPHY: 1. Left main showed no significant angiographic disease. 2. Left anterior descending is totally occluded. 3. From previous cardiac catheterization AVALOS is atretic and closed. 4. Left circumflex is totally occluded. 5. Vein graft to the circumflex is widely patent, previously placed stents are widely patent. The distal left circumflex is widely patent. 6. Right coronary artery is totally occluded. 7. Vein graft to the right coronary artery is widely patent. Distal right coronary artery is widely patent. OVERALL IMPRESSION: Wide patency of the circumflex and RCA graft, unchanged from previous angiography. Continue medical management of the coronary artery disease and cardiac risk factors. TRANSINT:[id number] Voice Confirmation ID: [id number] DOCUMENT ID: [id number] FABIENNE SANCHEZ MD CC: [id number] DICTATION DATE: 09/17/17 1005 COUNTER SUPERVISOR: 09/17/17 1122 [facility] [address] [place] [address]
[2017-09-17] MEDS ORDERED: TRIAZOLAM0.125 MG PO (07:48)
[2017-09-17] MEDS ORDERED: ISOSORBIDE MONO30 M1 PO (07:49)
[2017-09-17 08:05] LABS: BASOPHILS 0.5 % (0-2); EOSINOPHILS 6.8 % (0-7); HEMOGLOBIN 14.4 g/dL (12-16); IMMATURE GRANULOCYTES 0.1 % (0-5); LYMPHOCYTES 33.3 % (15-50); MCH 32.7 pg (26.0-34.0); MCHC 32.7 g/dL (31.0-37.0); MCV 99.8 fL (80.0-100.0); MEAN PLATELET VOLUME 10.3 fL (7.4-10.4); MONOCYTES 10.8 % (2-11); NEUTROPHILS 48.5 % (40-80); PLATELET COUNT 161 10x3/uL (130-400); RBC 4.41 10x6/uL (4.00-5.40); RDW 13.8 % (11.5-14.5); WBC 7.3 10x3/uL (4.8-10.8)
[2017-09-17 08:09] VITALS: BP 179/67; Ht 160 cm; Wt 75.0 kg
[2017-09-17 08:27] LABS: ANION GAP 15.4 mmol/L (8-16); CALCIUM 8.8 mg/dL (8.5-10.1); CARBON DIOXIDE 25.5 mmol/L (21.0-32.0); CREATININE - SERUM 1.5 mg/dL (0.6-1.3); POTASSIUM - SERUM 3.9 mmol/L (3.5-5.1)
== END 2017-09-17 12:25 | disposition home or self-care (01) ==
LOC: D.CATH 07:27
PROVIDERS: Internal Medicine Interventional Cardiology
DX: I25.10 Atherosclerotic heart disease of native coronary artery without angina pectoris (principal); I10 Essential (primary) hypertension; R07.9 Chest pain, unspecified; Z01.812 Encounter for preprocedural laboratory examination

== ENCOUNTER → 2018-02-22 08:37 | Outpatient (CLI) | payer MEDICARE, BC ==
[~2018-02-22] VITALS: Ht 160 cm; Wt 77.7 kg
--- NOTE | ~2018-02-22 | OP ---
PATIENT NAME: DELTA OMON MEDICAL RECORD: [id number] :38 LOCATION:D.CAT ADMISSION DATE: SURGEON: FABIENNE SANCHEZ MD DATE OF OPERATION: 02/22/2018 DATE OF SERVICE: 02/22/2018 PROCEDURES: 1. Left heart catheterization. 2. Selective coronary angiography. 3. Vein graft angiography. 4. Left ventriculogram. INDICATION: Angina and coronary artery disease. PROCEDURE IN DETAIL: After informed consent was obtained and after detailed explanation of risks, benefits as well as alternative therapies, the patient elected to proceed with angiogram and angioplasty. The right femoral area was prepped and draped in normal sterile fashion. Right femoral artery was cannulated via modified Seldinger technique with placement of 6-Kyrgyz sheath. All catheters exchanged through this sheath. FINDINGS: Left ventriculogram was performed in a standard 30-degree JONES view, reveals good cardiac wall motion throughout all segments. Overall ejection fraction estimated at 55% to 60%. SELECTIVE CORONARY ANGIOGRAPHY: 1. Left main is with no significant angiographic disease. 2. Left anterior descending is totally occluded in mid vessel. 3. AVALOS to the LAD is closed by previous cardiac catheterization. 4. Vein graft to the LAD diagonal is patent. The LAD diagonal is patent as well. 5. Left circumflex is widely patent and feeds the distal RCA. 6. The right coronary is totally occluded. 7. Vein graft to the distal right coronary is widely patent. Distal right coronary, PLV is widely patent. OVERALL IMPRESSION: Wide patency of both remaining vein grafts to the left anterior descending diagonal and right coronary artery. Elsewise, continue medical management of the coronary artery disease and cardiac risk factors. TRANSINT:[id number] Voice Confirmation ID: [id number] DOCUMENT ID: [id number] FABIENNE SANCHEZ MD at 1325 CC: [id number] DICTATION DATE: 02/22/18 1526 FLOOR LAYER APPRENTICE: 02/22/18 1537 [facility] CLI 02/22/[address] [address]
--- NOTE | ~2018-02-22 | HEMODYNAMI ---
PATIENT:DELTA MOON MEDICAL RECORD: [id number] : 38 LOCATION:[facility] ADMISSION DATE: 02/22/18 Generatedon:02/22/201815:28 Patient name: DELTA MOON Patient #: [id number] : 1940 Date of study: 02/22/2018 Page: Of Hemodynamic Procedure Report Patient Data Patient Demographics Procedure consent was obtained First Name: DELTA Gender: Female Last Name: SARAI : 1940 Middle Initial: P Age: 77 year(s) Patient #: [id number] Race: SSN: [id number] Additional ID: [id number] Contact details Address: [address] [place] [address] State: [place] City: [place] Zip code: [address] Past Medical History History of disease Date Diagnosis Comments CAD Allergies Allergen Reaction Date Comments Reported Other allergy 08/03/2015 COMPAZINE Other allergy 07/10/2016 Compazine Other allergy 01/03/2017 Compazine Other allergy 09/17/2017 Prochlorperazine Other allergy 02/22/2018 Compazine Admission Admission Data Admission Date: 02/22/2018 Admission Time: 8:37 Lab Results Lab Result Date: 02/22/2018 Lab Result Time: 10:10 Biochemistry Name Units Result Min Max BUN mg/dl 22 --(----)-* 7 18 Creatinine mg/dl 1.2 --(---*)-- 0.6 1.3 CBC Name Units Result Min Max Hematocrit % 38.9 *-(----)-- 42 54 Hemoglobin g/dl 12.8 -*(----)-- 13.5 17.5 Procedure Procedure Types Cath Procedure Diagnostic Procedure LHC LHC w/Coronaries w/Grafts Procedure Description Procedure Date Procedure Date: 02/22/2018 Procedure Start Time: 15:16 Procedure End Time: 15:27 Procedure Staff Name Function Yaron Oliva MD Performing Physician Juan Ko RT Monitor Jefferson Agustin RN Nurse Vanessa Plunkett RT Scrub Procedure Data Cath Procedure Fluoroscopy Diagnostic fluoroscopy Total fluoroscopy Time: 1.3 time: 1.3 min min Diagnostic fluoroscopy Total fluoroscopy dose: 513 dose: 513 mGy mGy Contrast Material Contrast Material Type Amount (ml) Isovue 300 53 Entry Location Entry Primary Successful Side Size Upsize Upsize Entry Closure Succes sful Closure Location (Fr) 1 (Fr) 2 (Fr) Remarks Device Remarks Femoral Right 5 Fr Exoseal artery Estimated blood loss: 5 ml Diagnostic catheters Device Type Used For End Catheter Placement MULTIPACK Pigtail 5 Fr Procedure catheter MULTIPACK JL 4.0 5Fr Procedure catheter DIAGNOSTIC AR 2 MOD 5 Fr Procedure catheter ([id number]) Procedure Complications No complications Procedure Medications Medication Administration Route Dosage 0.9% NaCl I.V. 100 ml/hr Oxygen etCO2 Nasal cannula 2 l/min Heparin Flush Bag added to field 2 bags (1000units/500ml NS) Lidocaine 2% added to field 20 Versed I.V. 2 mg Fentanyl I.V. 50 mcg Hemodynamics Rest HGB: 12.8 (g/dl) Heart Rate: 63 (bpm) Snapshots Pre Cath Intra NCS Post Cath Vital Signs Time Heart Resp SPO2 etCO2 NIBP (mmHg) Rhythm Pain Sedation Rate (ipm) (%) (mmHg) Status Level (bpm) 15:00:16 72 16 94 0 157/82(129) NSR 0 (11) 10(A) , No pain 15:05:01 64 15 100 37.3 145/73(122) NSR 0 (11) 10(A) , No pain 15:09:45 63 20 98 31.3 134/70(115) NSR 0 (11) 10(A) , No pain 15:14:30 62 16 98 32.1 135/67(107) NSR 0 (11) 10(A) , No pain 15:19:13 64 15 96 29.8 122/67(103) NSR 0 (11) 9(A) , No pain 15:23:53 64 18 97 29.8 132/72(104) NSR 0 (11) 9(A) , No pain Medications Time Medication Route Dose Verified Delivered Reason Notes Eff ectiveness by by 15:03:32 0.9% NaCl I.V. 100 Jefferson Jefferson Per ml/hr Nikole Agustin physician RN RN 15:03:41 Oxygen etCO2 2 Jefferson Jefferson Per Nasal l/min Nikole Agustin physician cannula RN RN 15:03:52 Heparin Flush added 2 Jefferson Jefferson used for Bag to bags Nikole Agustin procedure (1000units/500ml field RN RN NS) 15:04:03 Lidocaine 2% added 20ml Jefferson Jefferson for local to vial Lordeya Hidalgoigan anesthetic field RN RN 15:15:35 Versed I.V. 2 mg Jefferson Jefferson for Lorigan Lorigan sedation RN RN 15:15:45 Fentanyl I.V. 50 Jefferson Jefferson for mcg Lorigan Lorigan sedation RN offshore wind turbine technician Log Time Note 14:48:25 Vanessa Counts RT(R) sent for patient. Start room use. 14:48:25 Time tracking: Regular hours (M-F 7:00 - 5:00) 14:48:28 Plan of Care:Hemodynamics will remain stable., Cardiac rhythm will remain stable., Comfort level will be maintained., Respiratory function will remain adequate., Patient/ family verbilizes understanding of procedure., Procedure tolerated without complication., Recovers from procedure without complications.. 14:48:37 Procedure type changed to Cath procedure, Diagnostic procedure, LHC, LHC w/Coronaries w/Grafts 14:56:09 Patient received from Pre/Post Procedure Room to CCL 1 Alert and oriented. Tansferred to table in Supine position. 14:56:10 Warm blankets applied, and yrn hugger turned on for patient comfort. 14:56:11 Correct patient and procedure confirmed by team. 14:56:12 Signed procedure consent form obtained from patient. 14:56:13 Pre-procedure instructions explained to patient. 14:56:13 Pre-op teaching completed and patient verbalized understanding. 14:59:18 ECG and BP/O2 sat monitors applied to patient. 14:59:19 Vital chart was started 15:03:32 0.9% NaCl 100 ml/hr I.V. was administered by Jefferson Agustin RN; Per physician; 15:03:41 Oxygen 2 l/min etCO2 Nasal cannula was administered by Jefferson Agustin RN; Per physician; 15:03:52 Heparin Flush Bag (1000units/500ml NS) 2 bags added to field was administered by Jefferson Agustin RN; used for procedure; 15:04:03 Lidocaine 2% 20ml vial added to field was administered by Jefferson Agustin RN; for local anesthetic; 15:05:56 Baseline sample Acquired. 15:06:03 Rhythm: sinus rhythm 15:06:05 Full Disclosure recording started 15:06:45 H&P Date Dictated: 02/19/2018 Within 30 days and on chart., H&P Addendum completed by physician on day of procedure. (MUST COMPLETE FOR ALL OUTPATIENTS). 15:06:47 Family in waiting room. 15:06:48 Patient NPO since Midnight. 15:06:58 Patient allergic to Other allergyCompazine 15:07:15 Is the patient allergic to Iodine/contrast media? No. 15:07:17 Is patient on blood thinner?No 15:07:18 Patient diabetic? No. 15:07:21 Previous problem with sedation/anesthesia? No ? 15:07:22 Snore? Yes 15:07:23 Sleep apnea? Yes 15:07:24 Deviated septum? No 15:07:25 Opens mouth fully? Yes 15:07:26 Sticks out tongue? Yes 15:07:27 Airway obstruction? No ? 15:07:29 Dentures? No ? 15:07:33 Pre procedure: right posterior tibial pulse 2+ Normal; easily identifiable; not easily obliterated 15:07:36 Patient pain scale 0/10 ?. 15:07:48 IV patent on arrival in right antecubital with 0.9% NaCl at O. 15:09:34 Lab Result : Creatinine 1.2 mg/dl 15:09:34 Lab Result : BUN 22 mg/dl 15:09:34 Lab Result : Hemoglobin 12.8 g/dl 15:09:34 Lab Result : Hematocrit 38.9 % 15:09:37 Lab results completed and on chart. 15:09:43 Right groin area was prepped with chlora-prep and draped in sterile fashion 15:09:45 Alarms reviewed by R. N. 15:09:46 Sharps counted by scrub and verified by R.N. 15:09:48 Use device set Femoral Dx 15:09:49 ACIST Syringe (12589) opened to sterile field. 15:09:50 Bag Decanter (2002S) opened to sterile field. 15:09:50 Medline Cath Pack ([id number]) opened to sterile field. 15:09:52 ACIST Hand Control (09081) opened to sterile field. 15:09:53 ACIST Manifold (34858) opened to sterile field. 15:09:54 Tegaderm 4 x 4 (1626W) opened to sterile field. 15:09:55 SHEATH Prelude 5Fr 0.035 (BXX-2G-24-035) opened to sterile field. 15:09:58 DIAGNOSTIC Multipack 5Fr catheter set (ON3175) opened to sterile field. 15:09:59 DIAGNOSTIC WIRE .035 260cm J wire (117753) opened to sterile field. 15:12:06 Zero performed for pressure channel P1 15:14:53 Physician arrived 15::54 --------ALL STOP TIME OUT------ 15:14:54 Final Timeout: patient, procedure, and site verified with staff and physician. All members of the team are in agreement. 15:14:55 Right groin site verified by team. 15:14:58 Physical assessment completed. ASA score P 2 - A patient with mild systemic disease as per Yaron Oliva MD. 15:15:01 Sedation plan: IV Moderate Sedation Medication:Versed, Fentanyl 15:15:35 Versed 2 mg I.V. was administered by Jefferson Agustin RN; for sedation; 15:15:45 Fentanyl 50 mcg I.V. was administered by Jefferson Agustin RN; for sedation; 15:16:35 Procedure started. 15:16:40 Local anesthetic to right femoral artery with Lidocaine 2% by Yaron Oliva MD.INITIAL ACCESS ONLY 15:16:47 A 5 Fr sheath was inserted into the Right Femoral artery 15:16:56 A MULTIPACK Pigtail 5 Fr catheter was advanced over the wire and used for Procedure. 15:17:25 LV gram done using JONES 15:17:28 Injector settings: Ml/sec: 10, Volume: 20, 15:17:48 EF : 60 % 15:17:56 Catheter exchanged over wire. 15:18:10 A MULTIPACK JL 4.0 5Fr catheter was advanced over the wire and used for Procedure. 15:18:28 LCA angiography performed. 15:18:56 Catheter exchanged over wire. 15:19:31 A DIAGNOSTIC AR 2 MOD 5 Fr catheter ([id number]) was advanced over the wire and used for Procedure. 15:20:25 SVG to Diag angiography performed. 15:20:27 SVG to RCA angiography performed. 15:21:02 Catheter removed. 15:21:48 EXOSEAL 5Fr (EX500) opened to sterile field. 15:21:57 Sheath removed intact; hemostasis achieved with Exoseal to the Right Femoral artery. 15:21:59 Procedure ended.(Physican Out) 15:23:05 Fluoroscopy time 01.30 minutes. 15:23:17 Flurop Dose total: 513 15:23:17 Fluoroscopy dose: 513 mGy 15:24:16 Contrast amount:Isovue 300 53ml. 15:24:18 Sharps counted by scrub and verified by R.N. 15:24:20 Insertion/operative site no bleeding no hematoma. 15:24:23 Post-op/insertion site Right Femoral artery dressed using a 4 x 4 and Tegaderm. 15:24:26 Post right femoral artery:stable, soft, clean and dry 15:24:31 Post Procedure Pulses reassessed and unchanged 15:24:34 Post-procedure physical assessment completed. ASA score P 2 - A patient with mild systemic disease as per Yaron Oliva MD. 15:24:48 Post procedure rhythm: unchanged. 15:24:54 Estimated blood loss: 5 ml 15:24:55 Post procedure instruction explained to patient.Patient verbalizes understanding. 15:24:56 Patient needs reinforcement of post procedure teaching. 15:26:15 Procedure and supply charges have been captured, reviewed, submitted and are correct. 15:26:17 Procedure Complication : No complications 15:26:21 Vital chart was stopped 15:26:21 See physician's report for complete and final results. 15:26:22 Report given to Pre/Post Procedure Room. 15:26:54 Patient transfered to Pre/Post Procedure Room with Stretcher. 15:27:27 Procedure ended. 15:27:27 Full Disclosure recording stopped 15:27:30 End room use (Document Last) Device Usage Item Name Manufacture Quantity Catalog Number Hospital Part Current M inimal Lot# / Charge Number Stock Stock Serial# Code ACIST Syringe Acist 1 47167 117657 815213 854904 2 0 (34460) Nezasa Bag Decanter Microtek 1 053068 93871 308087 5 (2001S) Medical Inc. Medline Cath Cardinal 1 [id number] 473073 96997 392514 5 Pack Health ([id number]) ACIST Hand Acist 1 24649 556797 013777 499131 5 Control (91898) Medical Systems Inc ACIST Manifold Acist 1 51571 134804 476418 731947 5 (85152) Medical Systems Inc Tegaderm 4 x 4 3M 1 1626W 458886 186944 318291 5 (1626W) SHEATH Prelude Merit 1 [id number]-8Q-28-035 162708 847955 175245 5 5Fr 0.035 Medical (BFN-6Q-56-035) DIAGNOSTIC Cardinal 1 [id number] 571737 56758 761055 3 0 Multipack 5Fr Health catheter set ([id number]) DIAGNOSTIC WIRE [facility] 1 261117 676846 347824 587236 3 0 .035 260cm J wire (701209) MULTIPACK Cardinal 1 572821 5 Pigtail 5 Fr Health catheter MULTIPACK JL Cardinal 1 360630 5 4.0 5Fr Health catheter DIAGNOSTIC AR 2 Cardinal 1 [id number] 770204 588128 498548 2 0 MOD 5 Fr Health catheter ([id number]) EXOSEAL 5Fr Cardinal 1 EX500 006584 078988 060107 1 0 (EX500) Health Signature Audit [place] Stage Time Signature Unsigned Intra-Procedure 02/22/2018 Juan Ko 3:28:00 PM RT(R) Signatures Monitor : Juan Ko RT Signature : Date : Time : [facility] [address] [facility] [place] [address]
[~2018-02-22 08:37] MED LIST changes: +ISOSORBIDE MONO30 M1 PO; +TRIAZOLAM0.125 MG PO; +VITAMIN D31000 UNIT PO
[2018-02-22 09:51] VITALS: BP 163/72; Ht 160 cm; Wt 77.7 kg
[2018-02-22 10:19] LABS: BASOPHILS 0.6 % (0-2); HEMATOCRIT 38.9 % (36.0-48.0); HEMOGLOBIN 12.8 g/dL (12-16); IMMATURE GRANULOCYTES 0.3 % (0-5); LYMPHOCYTES 21.8 % (15-50); MCH 32.2 pg (26.0-34.0); MCHC 32.9 g/dL (31.0-37.0); MEAN PLATELET VOLUME 10.7 fL (7.4-10.4); MONOCYTES 10.7 % (2-11); NEUTROPHILS 60.6 % (40-80); PLATELET COUNT 143 10x3/uL (130-400); RBC 3.97 10x6/uL (4.00-5.40); RDW 14.3 % (11.5-14.5); WBC 6.8 10x3/uL (4.8-10.8)
[2018-02-22 10:53] LABS: ANION GAP 12.8 mmol/L (8-16); CALCIUM 8.9 mg/dL (8.5-10.1); CARBON DIOXIDE 27.7 mmol/L (21.0-32.0); CREATININE - SERUM 1.2 mg/dL (0.6-1.3); POTASSIUM - SERUM 4.5 mmol/L (3.5-5.1)
== END | disposition home or self-care (01) ==
LOC: D.CATH 08:37
PROVIDERS: Internal Medicine Interventional Cardiology
DX: I25.119 Atherosclerotic heart disease of native coronary artery with unspecified angina pectoris (principal); Z95.1 Presence of aortocoronary bypass graft; I10 Essential (primary) hypertension; Z86.73 Personal history of transient ischemic attack (TIA), and cerebral infarction without residual deficits; E78.5 Hyperlipidemia, unspecified

== ENCOUNTER → 2018-06-18 08:33 | Outpatient (CLI) | payer MEDICARE, BC ==
[2018-02-22 09:51] VITALS: BMI 30.3
== END | disposition home or self-care (01) ==
LOC: D.RAD 08:33
DX: R19.5 Other fecal abnormalities (principal); K59.09 Other constipation

== ENCOUNTER → 2018-08-09 10:54 | Outpatient (CLI) | payer MEDICARE, BC ==
[2018-02-22 09:51] VITALS: BMI 30.3
== END | disposition home or self-care (01) ==
LOC: D.US 10:54
DX: I12.9 Hypertensive chronic kidney disease with stage 1 through stage 4 chronic kidney disease, or unspecified chronic kidney disease (principal); N18.3 Chronic kidney disease, stage 3 (moderate)

== ENCOUNTER → 2018-11-07 08:27 | Outpatient (CLI) | payer MEDICARE, BC ==
[2018-02-22 09:51] VITALS: BMI 30.3
== END | disposition home or self-care (01) ==
LOC: D.RT 08:27
PROVIDERS: ATTEND Internal Medicine Pulmonary Disease
DX: R06.09 Other forms of dyspnea (principal)

== ENCOUNTER → 2018-11-14 13:34 | Outpatient (CLI) | payer MEDICARE, BC ==
[~2018-11-14 13:34] MED LIST changes: +HYDROCODON-ACE1 EA10 PO; +ISOSORBIDE MONO60 M1 PO; +LASIX20 MG PO; +NYSTATIN OINTME15 GM TOPICAL; +PRENAVITE1 TAB
== END | disposition home or self-care (01) ==
LOC: D.CT 13:34
DX: R94.2 Abnormal results of pulmonary function studies (principal)

== ENCOUNTER → 2019-02-24 08:57 | Outpatient (CLI) | payer MEDICARE, BC ==
[2018-02-22 09:51] VITALS: BMI 30.3
--- NOTE | 2019-02-28 11:14 | EC ---
PATIENT:DELTA MOON DATE OF SERVICE: 02/24/19 SEX: F MEDICAL RECORD: [id number] DATE OF : 38 [facility] AGE [facility] PATIENT: 78 ADMISSION DATE: 02/24/19 REFERRING PHYSICIAN: INTERPRETING PHYSICIAN: FABIENNE OLIVA MD ECHOCARDIOGRAM REPORT ECHO CHARGES 4 ECHO COMPLETE Date: 02/24/19 CLINICAL DIAGNOSIS: ANGINA/SOB/JENKINS/BRADYCARDIA H/O CAD/HTN ECHOCARDIOGRAPHIC MEASUREMENTS (adult normal given) AC root (d.<3.7cm) 3.2 cm LV Septum d (<1.2 cm> 1.0 cm Valve Excursion 1.6 cm LV Septum (systole) 1.8 cm Left Atria (s.<4.0cm> 4.0 cm LVPW d(<1.2cm) 1.2 cm RV (d.<2.3cm) 2.7 cm LVPW (sytole) 1.8 cm LV diastole(<5.6CM) 4.7 cm MV E-F(>70mm/sec) cm LV systole 2.5 cm LVOT Diameter 1.8 cm MV exc.(>10mm) cm Est.ejection fraction (50-75%) % DOPPLER: LVIT cm/sec A 66.0 cm/sec E 84.0 cm/sec LA cm/sec RVSP 85.0 mmHg LVOT 73.0 cm/sec AOP1/2T m/s Asc. Ao 148 cm/sec RVOT 56.0 cm/sec RA cm/sec PA 101 cm/sec AV Gradient Peak 8.8 mmHg AV Mean 4.9 mmHg AV Area 1.2 cm MV Gradient Peak 4.0 mmHg MV Mean 1.9 mmHg MV Area cm COMMENTS: Sleeping Car Conductor: Viet SPENCERDSOE Computer Information Systems Professor: 1 Dr. Oliva TAPE# PACS Pericardial Effusion N DATE OF SERVICE: 02/24/2019 FINDINGS: 1. Left ventricular chamber size is within normal limits. Left ventricular systolic function is normal. Overall ejection fraction is estimated at 55%. 2. Left atrium is at upper limits of normal at 4.0 cm. Right atrium and right ventricular chamber sizes are mildly dilated. 3. Valvular structures have normal structure and motion. 4. Doppler interrogation reveals moderate mitral regurgitation and vyzjewuk-xc-gxygmw tricuspid regurgitation. No other valvular insufficiency or ECHOCARDIOGRAM REPORT [id number] SARAI,DELTA P stenosis. Pulmonary systolic pressure is elevated significantly at 85 mmHg. 5. No evidence of pericardial effusion or left ventricular thrombus. TRANSINT:[id number] Voice Confirmation ID: [id number] DOCUMENT ID: [id number] FABIENNE OLIVA MD at 1114 CC: [id number] DICTATION DATE: 02/24/19 1605 FITTER MACHINIST: 02/24/19 1633 DEP CLI 02/24/19 [place] [id number] [place] [address]
--- NOTE | 2019-02-28 11:14 | ST ---
PATIENT:DELTA MOON MEDICAL RECORD: [id number] SEX: F LOCATION:[facility] ORDER #: ADMISSION DATE: 02/24/19 AGE OF PATIENT: 78 REFERRING PHYSICIAN: INTERPRETING PHYSICIAN: FABIENNE SANCHEZ MD DATE OF SERVICE: 02/24/2019 Nuclear Stress Test INDICATIONS: Angina and coronary artery disease, shortness of breath, hypertension, hyperlipidemia. PROCEDURE IN DETAIL: She was exercised on standard Lexiscan protocol with 28 mCi of sestamibi injected at peak stress and 9 mCi was used previously for rest images. FINDINGS: Gated SPECT reveals preserved ejection fraction at 67% with good wall motioning and thickening and brightening throughout all segments. SPECT Imaging: Cardiolite was used as myocardial perfusion agent. There is a large area of reversibility inferiorly, apically, and laterally, this includes the basal, mid, apical, inferior segments and apex itself, apical lateral, mid lateral, basal lateral segments. The degree of reversibility is ezyjtnpw-wt-mxlwlc. The amount of myocardium involved is large. OVERALL IMPRESSION: This is a high-risk abnormal nuclear stress test with reversible ischemia inferiorly, apically, and laterally suggestive of multivessel coronary artery disease. We will proceed with coronary angiography as followup study. TRANSINT:[id number] Voice Confirmation ID: [id number] DOCUMENT ID: [id number] FABIENNE SANCHEZ MD at 1114 CC: NATHAN OROSCO [id number] DICTATION DATE: 02/25/19 1022 GLOBAL DIRECTOR AIR AND CLIMATE CHANGE: 02/25/19 2251 DEP CLI 02/24/19 [place] [id number] [place] [id number]
== END | disposition home or self-care (01) ==
LOC: D.HCCARDIO 08:57
PROVIDERS: ATTEND Internal Medicine Interventional Cardiology
DX: I25.119 Atherosclerotic heart disease of native coronary artery with unspecified angina pectoris (principal)

== ENCOUNTER 2019-02-28 09:28 | Outpatient (CLI) | payer MEDICARE, BC ==
[~2019-02-28] VITALS: Ht 160 cm; Wt 78.6 kg
--- NOTE | ~2019-02-28 | HEMODYNAMI ---
PATIENT:DELTA MOON MEDICAL RECORD: [id number] : 38 LOCATION:[facility] ADMISSION DATE: 02/28/19 Generatedon:02/28/201912:07 Patient name: DELTA MOON Patient #: [id number] : 1940 Date of study: 02/28/2019 Page: Of Hemodynamic Procedure Report Patient Data Patient Demographics Procedure consent was obtained First Name: DELTA Gender: Female Last Name: SARAI : 1940 Middle Initial: P Age: 78 year(s) Patient #: [id number] Race: SSN: [id number] Additional ID: [id number] Contact details [address]: [address] [place] [address] State: [place] City: [place] Zip code: [address] Past Medical History Performed procedures and imaging results Date Procedure Procedure Results Comments Stress testing Positive->Intermediate with SPECT MPI risk History of disease Date Diagnosis Comments CAD Hypertension Sleep apnea Allergies Allergen Reaction Date Comments Reported Other allergy 08/03/2015 COMPAZINE Other allergy 07/10/2016 Compazine Other allergy 01/03/2017 Compazine Other allergy 09/17/2017 Prochlorperazine Other allergy 02/22/2018 Compazine Other allergy 02/28/2019 COMPAZINE Admission Admission Data Admission Date: 02/28/2019 Admission Time: 9:28 Arrival Date: 02/28/2019 Arrival Time: 0:00 Admit Source: Other Insurance Payor: Medicare [facility] #: [id number] Height (in.): 63 BSA: 1.83 (m2) Height (cm.): 160.02 BMI: 31 (kg/m2) Weight (lbs.): 175 Weight (kg.): 79.38 Medications upon Admission Medications Dosage Times Administered Last Remarks per Delivery Day Date and Time Aspirin 81 mg (any) GRACIA 40 mg 1 Inhibitor (any) Beta Kevin 50 mg (any) Current Diagnosis Diagnosis Description Stable angina Lab Results Lab Result Date: 02/28/2019 Lab Result Time: 0:00 Biochemistry Name Units Result Min Max BUN mg/dl 30 --(----)-* 7 18 Creatinine mg/dl 1.4 --(----)*- 0.6 1.3 eGFR ml/min 38 *-(----)-- 90 120 NONAFRICAN CBC Name Units Result Min Max Hematocrit % 42.9 --(*---)-- 42 54 Hemoglobin g/dl 14.4 --(*---)-- 13.5 17.5 Procedure Procedure Types Cath Procedure Diagnostic Procedure [facility] w/Coronaries w/Grafts Procedure Description Procedure Date Procedure Date: 02/28/2019 Procedure Start Time: 11:52 Procedure End Time: 12:02 Procedure Staff Name Function Yaron Oliva MD Performing Physician Irina Colin RT Monitor Merari Arnold RN Nurse Bhanu Santacruz RT Scrub Alinejae Blackmon RT Scrub Indication Angina Dyspnea Procedure Data Cath Procedure Fluoroscopy Diagnostic fluoroscopy Total fluoroscopy Time: 1.8 time: 1.8 min min Diagnostic fluoroscopy Total fluoroscopy dose: 460 dose: 460 mGy mGy Contrast Material Contrast Material Type Amount (ml) Isovue 300 63 Entry Location Entry Primary Successful Side Size Upsize Upsize Entry Closure Succes sful Closure Location (Fr) 1 (Fr) 2 (Fr) Remarks Device Remarks Femoral Right 5 Fr Exoseal artery Estimated blood loss: 10 ml Diagnostic catheters Device Type Used For End Catheter Placement MULTIPACK Pigtail 5 Fr Procedure catheter MULTIPACK JL 4.0 5Fr Procedure catheter MULTIPACK 3DRC 5Fr Procedure catheter DIAGNOSTIC AR2 MOD 5 Fr Procedure catheter ([id number]) Procedure Complications No complications Procedure Medications Medication Administration Route Dosage 0.9% NaCl I.V. 100 ml/hr Oxygen etCO2 Nasal cannula 2 l/min Lidocaine 2% added to field 20 Heparin Flush Bag added to field 2 bags (1000units/500ml NS) Versed I.V. 2 mg Fentanyl I.V. 50 mcg Hemodynamics Rest BSA: 1.83 (m2) HGB: 14.4 (g/dl) O2 Consumption: Estimated: 170.67 (ml/min) O2 Co nsumption indexed: Estimated:93.26 (ml/min/m) Heart Rate: 78 (bpm) Snapshots Pre Cath Intra NCS Post Cath Vital Signs Time Heart Resp SPO2 etCO2 NIBP (mmHg) Rhythm Pain Sedation Rate (ipm) (%) (mmHg) Status Level (bpm) 11:23:50 79 16 96 25.6 150/79(117) NSR 0 (11) 10(A) , No pain 11:27:56 80 19 97 24.9 138/76(108) NSR 0 (11) 10(A) , No pain 11:31:58 100 20 88 0.7 138/77(104) NSR 0 (11) 10(A) , No pain 11:36:03 88 18 96 18.1 134/73(97) NSR 0 (11) 10(A) , No pain 11:40:07 92 18 96 21.1 127/74(105) NSR 0 (11) 10(A) , No pain 11:44:11 91 19 96 18.1 140/69(108) NSR 0 (11) 10(A) , No pain 11:48:14 89 18 97 27.9 143/71(95) NSR 0 (11) 10(A) , No pain 11:52:20 90 16 97 34.7 136/75(99) NSR 0 (11) 9(A) , No pain 11:56:57 88 19 98 32.4 150/83(122) NSR 0 (11) 9(A) , No pain 12:01:00 89 17 98 33.2 159/83(124) NSR 0 (11) 10(A) , No pain Medications Time Medication Route Dose Verified Delivered Reason Notes Eff ectiveness by by 11:22:48 0.9% NaCl I.V. 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 2 mg Yaron Sheayla for Hazel Arnold sedation RN 11:49:16 Fentanyl I.V. 50 Yaron Merari for mcg Hazel Arnold sedation ear nose throat surgeon Log Time Note 9:00:52 Informed consent obtained and on chart 9:11:36 Patient allergic to Other allergyCOMPAZINE 9:11:46 Arrival Date: 02/28/2019 12:00:00 AM 9:12:24 Insurance Payor : Medicare 9:12:25 Admit Source: Other 9:12:33 Patient Height : 63 inches 9:12:36 Patient Weight : 175 lbs 9:16:57 Current Diagnosis : Stable angina 9:17:53 Diagnostic Cath Status : Elective 9:17:54 PCI Cath Status : Elective 9:18:06 Indication : Angina 9:18:16 Indication : Dyspnea 11:00:06 Merari Arnold RN sent for patient. Start room use. 11:12:59 Procedure Status Elective Heart Cath (OP). 11:13:07 Time tracking: Regular hours (M-F 7:00 - 5:00) 11:13:11 Plan of Care:Hemodynamics will remain stable., Cardiac rhythm will remain stable., Comfort level will be maintained., Respiratory function will remain adequate., Patient/ family verbilizes understanding of procedure., Procedure tolerated without complication., Recovers from procedure without complications.. 11:16:37 Patient received from Pre/Post Procedure Room to CCL 2 Alert and oriented. Tansferred to table in Supine position. 11:16:38 Warm blankets applied, and yrn hugger turned on for patient comfort. 11:16:39 Correct patient and procedure confirmed by team. 11:16:39 ECG and BP/O2 sat monitors applied to patient. 11:16:48 H&P Date Dictated: 02/10/2019 Within 30 days and on chart., H&P Addendum completed by physician on day of procedure. (MUST COMPLETE FOR ALL OUTPATIENTS). 11:22:39 Vital chart was started 11:22:48 0.9% NaCl 100 ml/hr I.V. was administered by Merari Arnold RN; used for procedure; 11:22:54 Oxygen 2 l/min etCO2 Nasal cannula was administered by Merari Arnold RN; used for procedure; 11:22:58 Lidocaine 2% 20ml vial added to field was administered by Yaron Oliva MD; for local anesthetic; 11:23:04 Heparin Flush Bag (1000units/500ml NS) 2 bags added to field was administered by Yarno Oliva MD; used for procedure; 11:25:10 Baseline sample Acquired. 11:25:14 Rhythm: sinus rhythm 11:25:15 Full Disclosure recording started 11:25:16 Pre-procedure instructions explained to patient. 11:25:16 Pre-op teaching completed and patient verbalized understanding. 11:25:17 Family in patients room. 11:25:19 Patient NPO since Midnight. 11:25:21 Is patient on blood thinner?No 11:25:22 Patient diabetic? No. 11:25:25 Patient not . Patient is over age 55. 11:25:30 Previous problem with sedation/anesthesia? No ? 11:25:31 Snore? Yes 11:25:32 Sleep apnea? Yes 11:25:38 Deviated septum? No 11:25:40 Opens mouth fully? Yes 11:25:41 Sticks out tongue? Yes 11:25:45 Airway obstruction? No ? 11:25:47 Dentures? No ? 11:25:50 Pre procedure: right dorsailis pedis pulse 2+ Normal; easily identifiable; not easily obliterated 11:25:53 Patient pain scale 0/10 ?. 11:26:00 IV patent on arrival in right antecubital with 0.9% NaCl at [facility]. 11:27:52 Lab Result : Creatinine 1.4 mg/dl 11:27:52 Lab Result : BUN 30 mg/dl 11:27:52 Lab Result : eGFR NONAFRICAN 38 ml/min 11:27:52 Lab Result : Hemoglobin 14.4 g/dl 11:27:52 Lab Result : Hematocrit 42.9 % 11:27:55 Lab results completed and on chart. 11:27:58 Right groin area was prepped with chlora-prep and draped in sterile fashion 11:27:59 Alarms reviewed by R. N. 11:28:00 Sharps counted by scrub and verified by R.N. 11:28:03 Use device set Femoral Dx 11:28:04 ACIST Syringe (12499) opened to sterile field. 11:28:04 Bag Decanter (2002) opened to sterile field. 11:28:05 ACIST Hand Control (36722) opened to sterile field. 11:28:05 ACIST Manifold (23233) opened to sterile field. 11:28:06 Tegaderm 4 x 4 (1626W) opened to sterile field. 11:28:08 Medline Cath Pack ([id number]) opened to sterile field. 11:28:09 DIAGNOSTIC Multipack 5Fr catheter set (RY1478) opened to sterile field. 11:28:10 SHEATH 5FR Carolina (JPE050) opened to sterile field. 11:28:10 EMERALD Guide Wire (271-910) opened to sterile field. 11:48:09 --------ALL STOP TIME OUT------ 11:48:10 Final Timeout: patient, procedure, and site verified with staff and physician. All members of the team are in agreement. 11:48:15 Right groin site verified by team. 11:48:20 Fire Safety Assessment: A--An alcohol-based skin anteseptic being used preoperatively., C--Open oxygen or nitrous oxide is being used., D--An ESU, laser, or fiber-optic light is being used. 11:48:25 Physical assessment completed. ASA score P 2 - A patient with mild systemic disease as per Yaron Oliva MD. 11:48:30 3b) 30-44 Moderately reduced kidney function. 11:48:36 Maximum allowable contrast dose (3.7 X eGFR X 0.75)105 ml. 11:48:41 Sedation plan: IV Moderate Sedation Medication:Versed, Fentanyl 11:49:05 Versed 2 mg I.V. was administered by Merari Arnold RN; for sedation; 11:49:16 Fentanyl 50 mcg I.V. was administered by Merari Arnold RN; for sedation; 11:52:41 Procedure started. 11:52:45 Zero performed for pressure channel P1 11:52:59 Local anesthetic to right femoral artery with Lidocaine 2% by Yaron Oliva MD.INITIAL ACCESS ONLY 11:54:11 A 5 Fr sheath was inserted into the Right Femoral artery 11:54:27 A MULTIPACK Pigtail 5 Fr catheter was advanced over the wire and used for Procedure. 11:54:30 LV gram done using JONES 11:54:32 Injector settings: Ml/sec: 10, Volume: 20, 11:55:12 EF : 55 % 11:56:18 Catheter removed. 11:56:22 A MULTIPACK JL 4.0 5Fr catheter was advanced over the wire and used for Procedure. 11:57:06 LCA angiography performed. 11:57:08 Catheter removed. 11:57:14 A MULTIPACK 3DRC 5Fr catheter was advanced over the wire and used for Procedure. 11:57:26 RCA angiography performed. 11:57:31 Catheter removed. 11:57:42 A DIAGNOSTIC AR2 MOD 5 Fr catheter ([id number]) was advanced over the wire and used for Procedure. 11:58:28 SVG to Circ angiography performed. 11:59:34 SVG to RCA angiography performed. 11:59:40 Catheter removed. 12:00:25 EXOSEAL 5Fr (EX500) opened to sterile field. 12:00:38 Sheath removed intact; hemostasis achieved with Exoseal to the Right Femoral artery. 12:00:40 Procedure ended.(Physican Out) 12:01:25 Fluoroscopy time 01.80 minutes. 12:01:31 Flurop Dose total: 460 12:01:31 Fluoroscopy dose: 460 mGy 12:01:41 Dose Area Product 43735 mGy/cm. 12:01:45 Cumulative Air Kerma 460mGy. 12:01:48 Contrast amount:Isovue 300 63ml. 12:01:51 Maximum allowable dose exceeded? No. 12:01:52 Sharps counted by scrub and verified by R.N. 12:01:56 Post-op/insertion site Right Femoral artery dressed using a 4 x 4 and Tegaderm. 12:01:59 Post-procedure physical assessment completed. ASA score P 2 - A patient with mild systemic disease as per Yaron Oliva MD. 12:02:13 Post procedure rhythm: sinus rhythm 12:02:16 Estimated blood loss: 10 ml 12:02:17 Post procedure instruction explained to patient.Patient verbalizes understanding. 12:02:18 Patient needs reinforcement of post procedure teaching. 12:02:45 Procedure and supply charges have been captured, reviewed, submitted and are correct. 12:02:48 Procedure Complication : No complications 12:02:50 Vital chart was stopped 12:02:51 See physician's report for complete and final results. 12:02:53 Report given to Pre/Post Procedure Room. 12:02:55 Patient transfered to Pre/Post Procedure Room with Bed. 12:02:58 Procedure ended. 12:02:58 Full Disclosure recording stopped 12:03:02 End room use (Document Last) Device Usage Item Name Manufacture Quantity Catalog Hospital Part Current Minimal L ot# / Number Charge Number Stock Stock Serial# Code ACMARIAH Acist 1 20465 [id number] 234409 048440 20 Syringe Medical (13384) Systems Inc Bag Microtek 1 2001S 046942 57578 479293 5 Decanter Medical Inc. () ACIST Hand Acist 1 70605 662567 554609 122845 5 Control Medical (86598) Systems Inc ACIST Acist 1 75860 122160 773025 028629 5 Manifold Medical (20716) Systems Inc Tegaderm 4 3M 1 1626W 953704 604992 985525 5 x 4 (1626W) Medline Medline 1 [id number] 308496 02701 128056 5 Cath Pack ([id number]) DIAGNOSTIC Cardinal 1 SS1504 807987 44370 798684 30 Multipack Health 5Fr catheter set (EQ8200) SHEATH 5FR Terumo 1 WLR464 425702 066591 515391 5 Carolina (HEN570) EMERALD Cardinal 1 502-455 981320 350447 745421 5 Guide Wire Health (502455) MULTIPACK Cardinal 1 033006 5 Pigtail 5 Health Fr catheter MULTIPACK Cardinal 1 464008 5 JL 4.0 5Fr Health catheter MULTIPACK Cardinal 1 929785 5 3DRC 5Fr Health catheter DIAGNOSTIC Cardinal 1 [id number] 187825 877520 088027 20 AR2 MOD 5 Health Fr catheter ([id number]) EXOSEAL 5Fr Cardinal 1 EX500 091958 412686 026635 10 (EX500) Health Signature Audit [place] Stage Time Signature Unsigned Intra-Procedure 02/28/2019 Irina Colin 12:07:26 PM RT(R) Signatures Performing Physician : Signature : Yaron Oliva MD Date : Time : Monitor : Irina Colin Signature : RT Date : Time : Nurse : Merari Arnold RN Signature : Date : Time : [address] [place] [address]
[~2019-02-28 09:28] MED LIST changes: -HYDROCODON-ACE1 EA10 PO; -ISOSORBIDE MONO60 M1 PO; -LASIX20 MG PO; -NYSTATIN OINTME15 GM TOPICAL; -PRENAVITE1 TAB
[2019-02-28] MEDS ORDERED: LASIX20 MG PO (10:01)
[2019-02-28] MEDS ORDERED: HYDROCODON-ACE1 EA10 PO (10:03)
[2019-02-28] MEDS ORDERED: VITAMIN D31000 UNIT PO (10:04)
[2019-02-28] MEDS ORDERED: PRENAVITE1 TAB (10:05)
[2019-02-28] MEDS ORDERED: NYSTATIN OINTME15 GM TOPICAL (10:05)
[2019-02-28] MEDS ORDERED: ISOSORBIDE MONO60 M1 PO (10:07)
[2019-02-28] MEDS ORDERED: CLARITIN 10 MG10 MG PO (10:08)
[2019-02-28] MEDS ORDERED: LIPITOR80 MG PO (10:08)
[2019-02-28 10:14] VITALS: BP 164/83; Ht 160 cm; Wt 78.6 kg
[2019-02-28 10:24] LABS: BASOPHILS 0.7 % (0-2); EOSINOPHILS 7.3 % (0-7); HEMATOCRIT 42.9 % (36.0-48.0); HEMOGLOBIN 14.4 g/dL (12-16); IMMATURE GRANULOCYTES 0.1 % (0-5); LYMPHOCYTES 28.9 % (15-50); MCH 32.7 pg (26.0-34.0); MCHC 33.6 g/dL (31.0-37.0); MCV 97.5 fL (80.0-100.0); MEAN PLATELET VOLUME 10.1 fL (7.4-10.4); MONOCYTES 8.8 % (2-11); NEUTROPHILS 54.2 % (40-80); RDW 14.3 % (11.5-14.5); WBC 6.7 10x3/uL (4.8-10.8)
[2019-02-28 10:25] LABS: PLATELET COUNT 177 10x3/uL (130-400)
[2019-02-28 10:31] LABS: ANION GAP 14.8 mmol/L (8-16); CALCIUM 9.3 mg/dL (8.5-10.1); CARBON DIOXIDE 25.6 mmol/L (21.0-32.0); CREATININE - SERUM 1.4 mg/dL (0.6-1.3); POTASSIUM - SERUM 4.4 mmol/L (3.5-5.1)
--- NOTE | 2019-02-28 12:13 | NUR ---
PT ARRIVED BY STRETCHER. PLACED ON MONITOR. ASSESSMENT COMPLETED. INSTRUCTED TO KEEP RIGHT WRIST STRAIGHT.
--- NOTE | 2019-02-28 12:28 | NUR ---
PT RESTING COMFORTABLY. VSS. RIGHT RADIAL TR BAND IN PLACE. NO BLEEDING/HEMATOMA NOTED.
--- NOTE | 2019-02-28 13:00 | NUR ---
PT'S HEAD OF BED INC. TOLERATING WELL. RIGHT GROIN DRESSING C/D/I. NO S/S OF HEMATOMA NOTED.
--- NOTE | 2019-02-28 13:20 | NUR ---
PT SITTING UP AND EATING SANDWICH. RIGHT GROIN DRESSING C/D/I. NO S/S OF HEMATOMA NOTED. VSS.
--- NOTE | 2019-02-28 13:50 | NUR ---
RIGHT AC PIV D/C'D WITH CATH TIP INTACT. PT TOLERATED. VSS. RIGHT GROIN DRESSING C/D/I. NO S/S OF HEMATOMA NOTED. PT AMBULATED TO RESTROOM. VOIDED WITHOUT DIFFICULTY. BACK TO ROOM. DISCUSSED DISCHARGE INSTRUCTIONS WITH PT. SHE VOICED UNDERSTANDING.
--- NOTE | 2019-02-28 14:05 | NUR ---
PT TAKEN OUT TO VEHICLE BY WHEELCHAIR. NO S/S OF DISTRESS NOTED. ALL BELONGINGS AND PAPERWORK IN HAND.
--- NOTE | 2019-02-28 14:45 | OP ---
PATIENT NAME: DELTA MOON MEDICAL RECORD: [id number] :38 LOCATION:[facility] ADMISSION DATE: SURGEON: FABIENNE SANCHEZ MD DATE OF OPERATION: 02/28/2019 PROCEDURES: 1. Left heart catheterization. 2. Selective coronary angiography. 3. Selective vein graft angiography. 4. Left ventriculogram. INDICATION: Angina and coronary artery disease. PROCEDURE IN DETAIL: After informed consent was obtained and after a detailed description of the risks, benefits as well as alternative therapies, the patient elected to proceed with angiogram and heart catheterization. The right femoral area was prepped and draped in normal sterile fashion. Right femoral artery was cannulated via modified Seldinger technique with placement of 6-Monegasque sheath. All catheters exchanged through this sheath. FINDINGS: Left ventriculogram was performed in standard 30-degree JONES view reveals preserved cardiac wall motion, ejection fraction 65%. SELECTIVE CORONARY ANGIOGRAPHY: 1. Left main is with no significant angiographic disease. 2. Left anterior descending is totally occluded in the mid vessel. 3. Left circumflex is totally occluded mid vessel. 4. Vein graft to the circumflex is widely patent. Distal circumflex is widely patent. 5. AVALOS to the LAD is atretic and nonfunctional from previous cardiac catheterization. 6. The right coronary artery is totally occluded. 7. Vein graft to the right coronary is widely patent. Distal right coronary is widely patent. OVERALL IMPRESSION: Wide patency of the vein graft to the circumflex, vein graft to the RCA. No change from previous cardiac catheterization, previously placed stents in the circumflex and RCA vein graft are widely patent. Continue medical management of the coronary artery disease and cardiac risk factors. TRANSINT:[id number] Voice Confirmation ID: [id number] DOCUMENT ID: [id number] FABIENNE SANCHEZ MD at 1445 CC: [id number] DICTATION DATE: 02/28/19 1202 SPLICING SUPERVISOR: 02/28/19 1312 DEP CLI 02/28/19 [place] [id number] [place] [address]
== END 2019-02-28 14:05 | disposition home or self-care (01) ==
LOC: D.CATH 09:28
PROVIDERS: ATTEND Internal Medicine Interventional Cardiology
DX: I25.119 Atherosclerotic heart disease of native coronary artery with unspecified angina pectoris (principal); Z01.812 Encounter for preprocedural laboratory examination

== ENCOUNTER → 2019-06-17 14:25 | Outpatient (CLI) | payer MEDICARE, BC ==
[2019-02-28 10:14] VITALS: BMI 30.7
[~2019-06-17 14:25] MED LIST changes: +HYDROCODON-ACE1 EA10 PO; +ISOSORBIDE MONO60 M1 PO; +LASIX20 MG PO; +NYSTATIN OINTME15 GM TOPICAL; +PRENAVITE1 TAB
== END | disposition home or self-care (01) ==
LOC: D.RAD 14:25
PROVIDERS: ATTEND Internal Medicine Pulmonary Disease
DX: R06.09 Other forms of dyspnea (principal)

== ENCOUNTER → 2020-01-20 10:27 | Outpatient (CLI) | payer MEDICARE, BC ==
[2019-02-28 10:14] VITALS: BMI 30.7
== END | disposition home or self-care (01) ==
LOC: D.US 10:27
PROVIDERS: ATTEND Internal Medicine Interventional Cardiology
DX: R20.2 Paresthesia of skin (principal)

== ENCOUNTER → 2020-03-02 08:53 | Outpatient (CLI) | payer MEDICARE, BC ==
[2019-02-28 10:14] VITALS: BMI 30.7
== END | disposition home or self-care (01) ==
LOC: D.NM 08:53
PROVIDERS: ATTEND Nurse Practitioner Family
DX: K80.20 Calculus of gallbladder without cholecystitis without obstruction (principal)

== ENCOUNTER 2020-03-30 07:30 | Day surgery (SDC) | payer MEDICARE, BC ==
[2020-03-29 10:36] LABS: BASOPHILS 0.3 % (0-2); EOSINOPHILS 2.5 % (0-7); HEMOGLOBIN 11.7 g/dL (12-16); IMMATURE GRANULOCYTES 0.3 % (0-5); LYMPHOCYTES 18.5 % (15-50); MCHC 31.6 g/dL (31.0-37.0); MCV 98.1 fL (80.0-100.0); MEAN PLATELET VOLUME 10.1 fL (7.4-10.4); MONOCYTES 8.6 % (2-11); NEUTROPHILS 69.8 % (40-80); PLATELET COUNT 195 10x3/uL (130-400); RBC 3.77 10x6/uL (4.00-5.40); RDW 16.4 % (11.5-14.5)
[2020-03-29 10:43] LABS: ANION GAP 14.3 mmol/L (8-16); CALCIUM 9.1 mg/dL (8.5-10.1); CARBON DIOXIDE 22.9 mmol/L (21.0-32.0); POTASSIUM - SERUM 5.2 mmol/L (3.5-5.1)
[~2020-03-30] VITALS: Ht 160 cm; Wt 63.5 kg
[~2020-03-30 07:30] MED LIST changes: +PACERONE200 MG PO; +PRESER VISION
[2020-03-30 08:19] VITALS: BP 147/45; Ht 160 cm; Wt 63.5 kg
[2020-03-30] MEDS ORDERED: HYDROCODON-ACE1 EA10 PO (11:17)
--- NOTE | 2020-03-30 13:07 | NUR ---
1304 O2 REMOVED. ON ROOM AIR. NO SHORTNESS OF BREATH NOTED. Andrea PINK R.N.
--- NOTE | 2020-03-30 13:50 | NUR ---
1350 IV DC'ED WITH CATH INTACT BY Andrea FITZPATRICK R.N. DRESSING. DAUGHTER @ BEDSIDE. Andrea PINK R.N.
--- NOTE | 2020-03-30 14:06 | NUR ---
1403 DRESSED. AWAKE & ALERT SETTING UP IN CHAIR @ BEDSIDE. GIVEN DISCHARGE INFORMATION INCLUDING: RX: NORCO 10/325MG, MED REC, RTC APPT., [facility]PS D/C INSTRUCTIONS, COMPUTER GENERATED POST CHOLECYSTECTOMY D/C INSTRUCTIONS, & [facility] GALL[facility] D/C INSTRUCTIONS. PT VOICED UNDERSTANDING. TO PRIVATE CAR PER STAFF. HOME WITH DAUGHTER. ZachAlan PINK R.N.
--- NOTE | 2020-04-01 13:22 | OP ---
PATIENT NAME: DELTA MOON MEDICAL RECORD: [id number] :38 LOCATION:D.OPS ADMISSION DATE: SURGEON: EDY XIAO MD DATE OF OPERATION: 03/30/2020 PREOPERATIVE DIAGNOSES: 1. Gallstones. 2. Atrial fibrillation. 3. Hypertension. 4. Hyperlipidemia. POSTOPERATIVE DIAGNOSES: 1. Gallstones. 2. Atrial fibrillation. 3. Hypertension. 4. Hyperlipidemia. PROCEDURE: Laparoscopic cholecystectomy. SURGEON: Edy Xiao MD REPORT OF PROCEDURE: The patient's abdomen was prepped and draped in sterile fashion. A cutdown was made on the superior aspect of the umbilicus, 0 Vicryls were placed in the fascia bilaterally and the fascia was incised with 15-blade. I then bluntly entered the peritoneal cavity and placed a 12-mm Magaly port. Under direct visualization, a 5 mm trocar was placed in the epigastrium and 2 more 5-mm trocars were placed in the right subcostal region. The gallbladder was grasped and elevated. There were some chronic inflammatory changes present and this fatty tissue was teased down carefully with blunt dissection. The cystic artery and cystic duct were dissected free and we clipped these structures proximally and distally and ligated them in standard fashion. The gallbladder was then taken off the liver bed using electrocautery. There was a lot of edema to the posterior aspect of the liver coming off the gallbladder fossa. The liver bed was then treated with electrocautery to stop any bleeding. We irrigated out the right upper quadrant and assured there was no sign of any bleeding or bile leakage. The ports and insufflation were then removed and the gallbladder was taken out through the umbilicus. The umbilical fascia was closed with interrupted 0 Vicryls times 3. The wounds were then irrigated out with normal saline and infused with 10 mL of 0.25% Marcaine with epinephrine. Skin incisions were all closed with subcutaneous 5-0 Monocryl and dressed appropriately. COMPLICATIONS: None. CONDITION: Stable. ANESTHESIA: General endotracheal and local. BLOOD LOSS: Minimal. TRANSINT:[id number] Voice Confirmation ID: [id number] DOCUMENT ID: [id number] OPERATIVE REPORT [id number] DELTA MOON EDY XIAO MD at 1322 CC: NATHAN OROSCO [id number] DICTATION DATE: 03/30/201121 MANAGEMENT ASSISTANT: 03/30/202047 [facility] 03/30/20 [place] [id number] [place] [id number]
== END 2020-03-30 14:03 | disposition home or self-care (01) ==
LOC: D.OPS 07:30
PROVIDERS: Anesthesiology; ATTEND Surgery
DX: K85.10 Biliary acute pancreatitis without necrosis or infection (principal); I48.91 Unspecified atrial fibrillation; I10 Essential (primary) hypertension; E78.5 Hyperlipidemia, unspecified